=== PATIENT | female | born 1980 | race Caucasian/White ===

== ENCOUNTER 2016-12-26 20:05 | Emergency (ER) | payer OTHER ==
[~2016-12-26] VITALS: Ht 167.6 cm; Wt 70.5 kg
[2016-12-26 20:45] LABS: LIPASE 89 U/L (23-300)
[2016-12-26] MEDS ORDERED: PHENERGAN 25 TA25 MG PO (21:52)
[2016-12-26 23:39] VITALS: BP 98/61; PULSE 78
== END 2016-12-26 23:42 | disposition home or self-care (01) ==
LOC: COL.ER 20:05
PROVIDERS: Emergency Medicine
DX: F10.120 Alcohol abuse with intoxication, uncomplicated (principal); R11.10 Vomiting, unspecified; Y90.6 Blood alcohol level of 120-199 mg/100 ml
CPT/HCPCS: J2550; J7030